=== PATIENT | male | born 1980 | race Caucasian/White ===

== ENCOUNTER 2018-11-18 16:12 | Emergency (ER) | payer BC ==
[~2018-11-18] VITALS: Ht 180.3 cm; Wt 92.2 kg
--- NOTE | 2018-11-18 16:36 | PHYS DOC ---
Past History Past Medical History: Hypertension Smoking: Non-smoker Alcohol Use: Occasionally Drug Use: None Adult General Chief Complaint Chief Complaint: FEVER HPI HPI Patient is a 38 year old male who presents with cough and shortness of breath and fever. Patient complaining of nonproductive cough with subjective fever for the last 3 days and one episode of chills this morning. Patient complaining of chest soreness and shortness of breath with exertion. Patient had 1 episode of diarrhea yesterday and complaining of generalized myalgia and weakness and states he slept from 3 AM to 1 PM today. Patient denies vomiting, sick contact, neck pain. Patient started leftover Zithromax since last night. Review of Systems Review of Systems Constitutional: Reports fever Eyes: Denies change in visual acuity, redness, or eye pain [] HENT: Reports nasal congestion or sore throat Respiratory: Reports cough and shortness of breath Cardiovascular: No additional information not addressed in HPI [] GI: Denies abdominal pain, vomiting, bloody stools, reports nausea and diarrhea [] : Denies dysuria or hematuria [] Musculoskeletal: Denies back pain or joint pain [] Integument: Denies rash or skin lesions [] Neurologic: Denies headache, focal weakness or sensory changes [] Endocrine: Denies polyuria or polydipsia [] All other systems were reviewed and found to be within normal limits, except as documented in this note. Allergies Allergies Allergies Coded Allergies Type Severity Reaction Last Updated Verified aspirin Allergy Intermediate Hives 11/18/18 Yes Physical Exam Physical Exam Constitutional: Well developed, well nourished, mild acute distress, non-toxic appearance. [] HENT: Normocephalic, atraumatic, bilateral external ears normal, oropharynx moist, no oral exudates, nose normal. [] Eyes: PERRLA, EOMI, conjunctiva normal, no discharge. [] Neck: Normal range of motion, no tenderness, supple, no stridor. [] Cardiovascular:Heart rate regular rhythm, no murmur [] Lungs & Thorax: Bilateral breath sounds clear to auscultation [] Abdomen: Bowel sounds normal, soft, no tenderness, no masses, no pulsatile masses. [] Skin: Warm, dry, no erythema, no rash. [] Back: No tenderness, no CVA tenderness. [] Extremities: No tenderness, no cyanosis, no clubbing, ROM intact, no edema. [] Neurologic: Alert and oriented X 3, normal motor function, normal sensory function, no focal deficits noted. [] Psychologic: Affect normal, judgement normal, mood normal. [] EKG EKG [] Radiology/Procedures Radiology/Procedures [address] [id number] IMAGING REPORT Signed PATIENT: MARGY CARROLL ACCOUNT: [id number] : 1980 LOCATION: ER AGE: 38 SEX: M EXAM STATUS: REG ER ORD. PHYSICIAN: CRISTOPHER DAWN MD REASON: cough and shortness of breath PROCEDURE: CHEST PA & LATERAL EXAM: Chest, 2 views. HISTORY: Chest pain. Cough. COMPARISON: 11/20/2015. FINDINGS: 2 views of the chest are obtained. There is no infiltrate, pleural effusion or pneumothorax. The heart is normal in size. There is stable focal opacity overlying the lateral left mid thorax likely due to pleural parenchymal scarring. There may be a superimposed granuloma within this location. IMPRESSION: No acute pulmonary finding. Electronically signed by: Adia King MD (11/18/2018 4:52 PM) [id number] DICTATED AND SIGNED BY: ADIA KING MD DATE: 11/18/181650 CC: ILANA CAST MD; CRISTOPHER DAWN MD ~ Course & Med Decision Making Course & Med Decision Making Pertinent Labs and Imaging studies reviewed. (See chart for details) []discharge: I've spoken with the patient and/or caregivers. I've explained the patient's condition, diagnosis and treatment plan based on information available to me at this time. I've answered the patient's and/or caregivers questions and addressed any concerns. The patient and/or caregivers have a good understanding the patient's diagnosis, condition and treatment plan as can be expected at this point. Vital signs have been stabilized. The patient's condition is stable for discharge from the emergency department. The patient will pursue further outpatient evaluation with her primary care provider or other designated consulting physician as outlined in the discharge instructions. Patient and/or caregivers are agreeable to this plan of care and follow-up instructions have been explained in detail. The patient and/or caregivers have received these instructions in written format and expressed understanding of these discharge instructions. The patient and her caregivers are aware that if any significant change in condition or worsening of symptoms should prompt him to immediately return to this of the closest emergency department. If an emergent department is not readily available I would encourage him to call 911. Kim Disclaimer Dragon Disclaimer This electronic medical record was generated, in whole or in part, using a voice recognition dictation system. Departure Departure: Impression: Primary Impression: Influenza A Additional Impressions: Fever Cough Disposition: HOME, SELF-CARE (at 1726) Condition: IMPROVED Referrals: ILANA CAST MD (PCP) Patient Instructions: Cough, Adult, Fever, Adult, Influenza A (H1N1) Additional Instructions: Drink plenty of liquids Follow-up with your primary care physician in 3-5 days Return to ER if not getting better Scripts Hydrocodone/Chlorphen P-Stirex (Tussionex Pennkinetic Susp) 115 Ml Radha.er.12h 5 ML PO BID for cough and congestion, #120 ML Prov: CRISTOPHER DAWN MD 11/18/18 Albuterol Sulfate (PROAIR HFA INHALER) 8.5 Gm Hfa.aer.ad 2 PUFF INH PRN Q6HRS PRN for SHORTNESS OF BREATH, #1 INHALER 0 Refills Prov: CRISTOPHER DAWN MD 11/18/18 Problem Qualifiers CRISTOPHER DAWN MD Nov 18, 2018 16:36
--- NOTE | 2018-11-18 16:55 | RAD ---
EXAM: Chest, 2 views. HISTORY: Chest pain. Cough. COMPARISON: 11/20/2015. FINDINGS: 2 views of the chest are obtained. There is no infiltrate, pleural effusion or pneumothorax. The heart is normal in size. There is stable focal opacity overlying the lateral left mid thorax likely due to pleural parenchymal scarring. There may be a superimposed granuloma within this location. IMPRESSION: No acute pulmonary finding. Electronically signed by: Adia Healy MD (11/18/2018 4:52 PM) [id number]
[2018-11-18] MEDS ORDERED: IPRATRPIUM/ALBUTEROL 0.5/2.5MG 3 ML NEBU. NEB ONE (17:00)
[2018-11-18 17:17] LABS: INFLUENZA A PATIENT POSITIVE (NEGATIVE); INFLUENZA B PATIENT NEGATIVE (NEGATIVE)
[2018-11-18] MEDS ORDERED: ALBU2.5V8 INH (17:28)
[2018-11-18] MEDS ORDERED: HYDR115S2 PO (17:28)
[2018-11-18 17:38] VITALS: BP 131/86
== END 2018-11-18 17:39 | disposition home or self-care (01) ==
LOC: ER 16:12
DX: J10.1 Influenza due to other identified influenza virus with other respiratory manifestations (principal); I10 Essential (primary) hypertension; Z88.6 Allergy status to analgesic agent
CPT/HCPCS: 71046; 87804; 94640; 99284; J7620

== ENCOUNTER → 2018-12-29 | Outpatient (CLI) | payer BC ==
[~2018-12-29] MED LIST: ALBU2.5V8 INH; HYDR115S2 PO
--- NOTE | 2018-12-29 10:33 | CARD ---
MR#: [id number] Date of Study: 12/29/2018 Ordering Physician: MARGARITA ARAMBULA, Referring Physician: Kimberly MORIN: Gail Wong RDCS APPROVED REPORT INDICATION Hypertension/HCVD Dyspnea on Exertion Reason : Patient complained of shortness of breath PROCEDURE The patient underwent an Exercise Stress Test using the Adin Protocol. Blood pressure, heart rate, a nd EKG were monitored. An Echocardiogram was performed by voip network technician in four stages in quad fashion. At peak stress four se lected images were obtained and placed side by side with resting images for comparison. STRESS ECHO FINDINGS The resting Echocardiogram showed normal left ventricular systolic contractility with an estimated Ej ection Fraction of about 60 %. The Resting Echocardiogram showed normal augmentation of myocardial wall segments using a 16 segment model. The Stress Echocardiogram showed normal augmentation of myocardial wall segments using a 16 segment m yaritza. The Stress Echocardiogram left ventricular systolic contractility has an estimated Ejection Fraction of about 65%. Test Type: Exercise Stress Nurse/Tech: DAVID Adame Test Indications: Dyspnea on Exertion Cardiac History and Allergies: Hypertension--Took Bystolic meds prior to stress echo Medications: Bystolic Resting ECG: NSR Resting Heart Rate: 54 bpm Resting Blood Pressure: 119/74mmHg Pretest Chest Pain: None Nurse/Tech Notes No exercise induced chest pain Exercised 10 mins, 40 seconds Patient reported SOA Peak HR [address]/T changes LAFB appears rate related POST EXERCISE Reason for Termination: Fatigue Target HR: 153 Max HR: 163 bpm 90% of Maximum Predicted HR: 180 bpm Exercise duration: 10:40 min:sec, 3 Stage Exercise capacity: 4.2METs Max Blood Pressure: 144/82mmHg Blood Pressure response to exercise: Normal blood pressure response during stress. Heart Rate response to exercise: Normal Chest Pain: No. Arrhythmia: No. ST Change: No. INTERPRETATION Stress EKG Conclusion: No acute ST/T changes RESTING ECG Rhythm: Sinus STRESS ECG Rhythm: Sinus Tachycardia Stress EKG shows no significant changes. Preliminary Notification Critical Value: No <Conclusion> Normal exercise capacity and blood pressure response. Patient achieved [address] or T wave changes to suggest any significant ischemia. Normal resting wall motion and ejection fraction at 55%. Normal augmentation and wall motion with ejection fraction of 70% with stress. Low risk study. Signed by : Curtis Hull, Electronically Approved : 12/29/2018 10:32:57
== END | disposition home or self-care (01) ==
LOC: ECHO 07:40
PROVIDERS: ATTEND Internal Medicine Cardiovascular Disease
DX: R06.09 Other forms of dyspnea (principal); I10 Essential (primary) hypertension; R00.0 Tachycardia, unspecified
CPT/HCPCS: 93307; 93350